=== PATIENT | male | born 1960 | race Hispanic/Latino ===

== ENCOUNTER 2018-11-12 11:07 | Emergency (ER) | payer MEDICARE ==
[2018-11-12] MEDS ORDERED: LIDOCAINE 2%-EPI 1:200,000 20 ML VIAL IJ ONE (11:52)
[2018-11-12] MEDS ORDERED: TETANUS/DIPHTHERIA TOXOID [ADULT] 0.5 ML VIAL IM ONE (11:53)
== END 2018-11-12 12:53 | disposition home or self-care (01) ==
LOC: EDH 11:07
DX: S61.411A Laceration without foreign body of right hand, initial encounter (principal); W20.8XXA Other cause of strike by thrown, projected or falling object, initial encounter; Y93.89 Activity, other specified; Y92.007 Garden or yard of unspecified non-institutional (private) residence as the place of occurrence of the external cause; Y99.8 Other external cause status; I10 Essential (primary) hypertension; I48.91 Unspecified atrial fibrillation
CPT/HCPCS: 12041; 73130; 90471; 90714; 99284; J3490

== ENCOUNTER 2018-11-24 10:14 | Emergency (ER) | payer MEDICARE | END 2018-11-24 11:59 | disposition home or self-care (01) | LOC: EDH 10:14 | DX: S61.411D Laceration without foreign body of right hand, subsequent encounter (principal); I10 Essential (primary) hypertension; I48.91 Unspecified atrial fibrillation; X58.XXXD Exposure to other specified factors, subsequent encounter | CPT/HCPCS: 99281 ==